=== PATIENT | female | born 1990 | race Asian ===

== ENCOUNTER 2019-01-01 21:30 | Emergency (ER) | payer MEDICAID ==
[~2019-01-01] VITALS: Ht 154.9 cm; Wt 47.3 kg
[~2019-01-01 21:30] MED LIST: ACET325T33 PO; RANI150T35 PO
[2019-01-01 21:49] VITALS: Ht 154.9 cm; Wt 47.3 kg
--- NOTE | 2019-01-01 23:13 | ERD ---
ER Documentation Chief Complaint Chief Complaint 11 WKS C/O ABD AND BACK PAIN X 9 DAYS DENIES VB ROS All systems reviewed and are negative except as per history of present illness. Medications Home Meds Active Scripts Acetaminophen* (Tylenol*) 325 Mg Tablet, 2 TAB PO Q6 PRN for PAIN AND OR ELEVATED TEMP, #20 TAB Prov:SCOOTER CONTRERAS PA-C 01/02/19 Ranitidine Hcl* (Zantac*) 150 Mg Tablet, 150 MG PO BID PRN for EPIGASTRIC PAIN, #30 TAB Prov:SCOOTER CONTRERAS PA-C 01/02/19 Allergies Allergies: Coded Allergies: No Known Allergy (Unverified , 12/25/18) PMhx/Soc Medical and Surgical Hx: pt denies Medical Hx, pt denies Surgical Hx Hx Alcohol Use: No Hx Substance Use: No Hx Tobacco Use: No Physical Exam Vitals Vital Signs Date Temp Pulse Resp B/P (MAP) Pulse Ox O2 O2 Flow FiO2 Time Delivery Rate 01/02/19 98.5 62 20 112/59 98 Room Air 01:58 (76) 01/01/19 98.6 66 18 113/56 100 21:49 (75) Physical Exam Const: No acute distress Head: Atraumatic Eyes: Normal Conjunctiva ENT: Normal External Ears, Nose and Mouth. Neck: Full range of motion. No meningismus. Resp: Clear to auscultation bilaterally Cardio: Regular rate and rhythm, no murmurs Abd: Soft, non tender, non distended. Normal bowel sounds Skin: No petechiae or rashes Back: No midline or flank tenderness Ext: No cyanosis, or edema Neur: Awake and alert Psych: Normal Mood and Affect Result Diagram: 01/01/19 2336 01/01/19 2336 Results 24 hrs Laboratory Tests Test 01/01/19 23:17 01/01/19 23:36 POC Beta HCG, Qualitative POSITIVE White Blood Count 9.9 10^3/ul Red Blood Count 4.04 10^6/ul Hemoglobin 11.1 g/dl Hematocrit 33.4 % Mean Corpuscular Volume 82.7 fl Mean Corpuscular Hemoglobin 27.5 pg Mean Corpuscular Hemoglobin Concent 33.2 g/dl Red Cell Distribution Width 15.7 % Platelet Count 233 10^3/UL Mean Platelet Volume 11.3 fl Immature Granulocytes % 0.200 % Neutrophils % 68.7 % Lymphocytes % 20.9 % Monocytes % 6.9 % Eosinophils % 2.9 % Basophils % 0.4 % Nucleated Red Blood Cells % 0.0 /100WBC Immature Granulocytes # 0.020 10^3/ul Neutrophils # 6.8 10^3/ul Lymphocytes # 2.1 10^3/ul Monocytes # 0.7 10^3/ul Eosinophils # 0.3 10^3/ul Basophils # 0.0 10^3/ul Nucleated Red Blood Cells # 0.0 10^3/ul Prothrombin Time 12.6 Sec Prothrombin Time Ratio 1.0 INR International Normalized Ratio 0.93 Activated Partial Thromboplast Time 27.1 Sec Urine Color STRAW Urine Clarity CLEAR Urine pH 8.0 Urine Specific [place] 1.005 Urine Ketones NEGATIVE mg/dL Urine Nitrite NEGATIVE mg/dL Urine Bilirubin NEGATIVE mg/dL Urine Urobilinogen NEGATIVE mg/dL Urine Leukocyte Esterase NEGATIVE Naheed/ul Urine Hemoglobin NEGATIVE mg/dL Urine Glucose NEGATIVE mg/dL Urine Total Protein NEGATIVE mg/dl Sodium Level 140 mmol/L Potassium Level 3.5 mmol/L Chloride Level 103 mmol/L Carbon Dioxide Level 26 mmol/L Anion Gap 11 Blood Urea Nitrogen 8 mg/dl Creatinine 0.64 mg/dl Est Glomerular Filtrat Rate mL/min > 60 mL/min Glucose Level 98 mg/dl Calcium Level 9.7 mg/dl Total Bilirubin 0.2 mg/dl Direct Bilirubin 0.00 mg/dl Indirect Bilirubin 0.2 mg/dl Aspartate Amino Transf (AST/SGOT) 52 IU/L Alanine Aminotransferase (ALT/SGPT) 61 IU/L Alkaline Phosphatase 57 IU/L Total Protein 8.1 g/dl Albumin 4.4 g/dl Globulin 3.70 g/dl Albumin/Globulin Ratio 1.18 Beta HCG, Quantitative 183019.0 mIU/ml Salicylates Level < 1.0 mg/dl Acetaminophen Level < 10.0 ug/ml Current Medications Medications Dose Sig/Alena Start Time Status Last (Trade) Ordered Route PRN Stop Time Admin Dose Reason Admin Sodium 1,000 ml @ Q1H STAT 01/01/19 DC 01/01/19 Chloride 1,000 mls/hr IV 23:26 23:39 01/02/19 00:25 Morphine 2 mg ONCE STAT 01/01/19 DC 01/01/19 Sulfate IV 23:26 23:39 (morphine) 01/01/19 23:31 Ondansetron 4 mg ONCE STAT 01/01/19 DC 01/01/19 HCl (Zofran IV 23:26 23:39 Inj) 01/01/19 23:31 ELISABETH BOO Jan 01, 2019 23:13
[2019-01-01] MEDS ORDERED: SOD CHLORIDE 0.9% 1,000 ML IV STA (23:26)
[2019-01-01] MEDS ORDERED: ONDANSETRON 4 MG INJ IV STA (23:26)
[2019-01-01] MEDS ORDERED: morphine 4 MG/ML VIAL IV STA (23:26)
[2019-01-02 01:58] VITALS: BP 112/59; PULSE 62; RESP 20
--- NOTE | 2019-01-08 01:44 | ERD ---
ER Documentation Chief Complaint Chief Complaint 11 WKS C/O ABD AND BACK PAIN X 9 DAYS DENIES VB HPI This is a 28-year-old female who is 11 weeks , G1, P0, last menstrual c ycle of 10/14/2018 presenting to the emergency department at approximately 11 weeks with complaints of back and suprapubic pain. She denies any vaginal bleeding. She is also had nausea. Her pain is sharp. She took no medication for relief of symptoms today. No other symptoms reported currently. ROS All systems reviewed and are negative except as per history of present illness. Medications Home Meds Active Scripts Acetaminophen* (Tylenol*) 325 Mg Tablet, 2 TAB PO Q6 PRN for PAIN AND OR ELEVATED TEMP, #20 TAB Prov:SCOOTER CONTRERAS PA-C 01/02/19 Ranitidine Hcl* (Zantac*) 150 Mg Tablet, 150 MG PO BID PRN for EPIGASTRIC PAIN, #30 TAB Prov:SCOOTER CONTRERAS PA-C 01/02/19 Allergies Allergies: Coded Allergies: No Known Allergy (Unverified , 12/25/18) PMhx/Soc Medical and Surgical Hx: pt denies Medical Hx, pt denies Surgical Hx Hx Alcohol Use: No Hx Substance Use: No Hx Tobacco Use: No FmHx Family History: No diabetes Physical Exam Physical Exam Const: No acute distress Head: Atraumatic Eyes: Normal Conjunctiva ENT: Normal External Ears, Nose and Mouth. Neck: Full range of motion. No meningismus. Resp: Clear to auscultation bilaterally Cardio: Regular rate and rhythm, no murmurs Abd: Soft, non tender, non distended. Normal bowel sounds. Tenderness palpation of the bilateral suprapubic region. No rebound tenderness or guarding . No McBurney's point tenderness. Skin: No petechiae or rashes Back: No midline or flank tenderness Ext: No cyanosis, or edema Neur: Awake and alert Psych: Normal Mood and Affect Results 24 hrs Laboratory Tests Test 01/01/19 23:17 01/01/19 23:36 POC Beta HCG, Qualitative POSITIVE White Blood Count 9.9 10^3/ul Red Blood Count 4.04 10^6/ul Hemoglobin 11.1 g/dl Hematocrit 33.4 % Mean Corpuscular Volume 82.7 fl Mean Corpuscular Hemoglobin 27.5 pg Mean Corpuscular Hemoglobin Concent 33.2 g/dl Red Cell Distribution Width 15.7 % Platelet Count 233 10^3/UL Mean Platelet Volume 11.3 fl Immature Granulocytes % 0.200 % Neutrophils % 68.7 % Lymphocytes % 20.9 % Monocytes % 6.9 % Eosinophils % 2.9 % Basophils % 0.4 % Nucleated Red Blood Cells % 0.0 /100WBC Immature Granulocytes # 0.020 10^3/ul Neutrophils # 6.8 10^3/ul Lymphocytes # 2.1 10^3/ul Monocytes # 0.7 10^3/ul Eosinophils # 0.3 10^3/ul Basophils # 0.0 10^3/ul Nucleated Red Blood Cells # 0.0 10^3/ul Prothrombin Time 12.6 Sec Prothrombin Time Ratio 1.0 INR International Normalized Ratio 0.93 Activated Partial Thromboplast Time 27.1 Sec Urine Color STRAW Urine Clarity CLEAR Urine pH 8.0 Urine Specific [place] 1.005 Urine Ketones NEGATIVE mg/dL Urine Nitrite NEGATIVE mg/dL Urine Bilirubin NEGATIVE mg/dL Urine Urobilinogen NEGATIVE mg/dL Urine Leukocyte Esterase NEGATIVE Naheed/ul Urine Hemoglobin NEGATIVE mg/dL Urine Glucose NEGATIVE mg/dL Urine Total Protein NEGATIVE mg/dl Sodium Level 140 mmol/L Potassium Level 3.5 mmol/L Chloride Level 103 mmol/L Carbon Dioxide Level 26 mmol/L Anion Gap 11 Blood Urea Nitrogen 8 mg/dl Creatinine 0.64 mg/dl Est Glomerular Filtrat Rate mL/min > 60 mL/min Glucose Level 98 mg/dl Calcium Level 9.7 mg/dl Total Bilirubin 0.2 mg/dl Direct Bilirubin 0.00 mg/dl Indirect Bilirubin 0.2 mg/dl Aspartate Amino Transf (AST/SGOT) 52 IU/L Alanine Aminotransferase (ALT/SGPT) 61 IU/L Alkaline Phosphatase 57 IU/L Total Protein 8.1 g/dl Albumin 4.4 g/dl Globulin 3.70 g/dl Albumin/Globulin Ratio 1.18 Beta HCG, Quantitative 904866.0 mIU/ml Salicylates Level < 1.0 mg/dl Acetaminophen Level < 10.0 ug/ml Current Medications Medications Dose Sig/Alena Start Time Status Last (Trade) Ordered Route PRN Stop Time Admin Dose Reason Admin Sodium 1,000 ml @ Q1H STAT 01/01/19 DC 01/01/19 Chloride 1,000 mls/hr IV 23:26 23:39 01/02/19 00:25 Morphine 2 mg ONCE STAT 01/01/19 DC 01/01/19 Sulfate IV 23:26 23:39 (morphine) 01/01/19 23:31 Ondansetron 4 mg ONCE STAT 01/01/19 DC 01/01/19 HCl (Zofran IV 23:26 23:39 Inj) 01/01/19 23:31 [place] [address] Radiology Main Line: [phone] DIAGNOSTIC IMAGING REPORT Patient: CRISTHIAN OJEDA : 1990 Age: 28 Sex: F MR #: [id number] DOS: 01/02/19 0000 Ordering MD: SCOOTER CONTRERAS PA-C Location: [facility] Room/Bed: PROCEDURE: Renal US. CLINICAL INDICATION: Abdominal pain. TECHNIQUE: Multiple sonographic images of the kidneys were obtained. The images were reviewed on a PACS workstation. COMPARISON: No prior studies are available for comparison. FINDINGS: The right kidney measures 11.1 cm. There is normal renal cortical echogenicity without evidence of hydronephrosis, calculus or mass. There is normal Doppler flow. The left kidney measures 11.5 cm. There is normal renal cortical echogenicity without evidence of hydronephrosis, calculus or mass. There is normal Doppler flow. The bladder is adequately distended without evidence of asymmetric wall thickening or debris. IMPRESSION: 1. Normal sonographic findings of the kidneys and urinary bladder. RPTAT: HGAS .Chinedu Gibson MD, MD Date Time Electronically viewed and signed by .Chinedu Gibson MD, MD on 01/02/2019 00:51 .S/ CC: SCOOTER CONTRERAS PA-C [id number] [place] [id number] Radiology Main Line: [phone] DIAGNOSTIC IMAGING REPORT Patient: CRISTHIAN OJEDA : 1990 Age: 28 Sex: F MR #: [id number] DOS: 01/01/19 2326 Ordering MD: SCOOTER CONTRERAS PA-C Location: [facility] Room/Bed: PROCEDURE: OB Ultrasound. CLINICAL INDICATION: Positive test. Pelvic pain. TECHNIQUE: Ultrasound of the pelvis was performed with transabdominal sonography in the axial and sagittal planes. COMPARISON: No prior study is available for comparison. FINDINGS: There is a single intrauterine gestational sac. Yolk sac is present. pole is visualized. There is heart motion. heart rate is 168 beats per minute. [place]-rump length is 4.50 cm. Mean sac diameter is 5.76 cm. Menstrual age by ultrasound dates is 12 weeks 0 days. This indicates an expected date of delivery of 07/16/2019. The ovaries are not visualized. There is no other pelvic mass or free fluid. IMPRESSION: 1. Single live intrauterine gestation of 12 weeks 0 days menstrual age by ultrasound dates. 2. Expected date of delivery is 07/16/2019. RPTAT: QQ .Chris Schulte MD, MD Date Time Electronically viewed and signed by .Chris Schulte MD, on 01/02/2019 00:54 .R/ CC: SCOOTER CONTRERAS PA-C [id number] Procedures/MDM 28-year-old female presenting to the emergency department complaining of back pain and epigastric pain. She is reportedly 12 weeks . She was improved in the department after administration of Tylenol. The patient is otherwise stable for discharge and further outpatient management. No evidence to suggest ectopic , tubo-ovarian abscess, ovarian torsion, or other emergent pathology. Patient's laboratory studies were within normal limits. No evidence of urinary tract infection. Patient advised to have 24 to 48-hour follow-up with her [facility] physician and return here immediately for any new or concerning symptoms. Shared my medical decision making the patient she understands and agrees with the plan. Departure Diagnosis: Primary Impression: Back pain Additional Impression: Epigastric pain Condition: Fair Patient Instructions: Back Exercises, Lumbar, Back Pain (Acute Or Chronic), Gerd (Adult) Additional Instructions: Call your primary care doctor TOMORROW for an appointment during the next 1-2 days.See the doctor sooner or return here if your condition worsens before your appointment time. SCOOTER CONTRERAS PA-C Jan 08, 2019 01:44
== END 2019-01-02 01:59 | disposition home or self-care (01) ==
LOC: FTE 21:30
DX: O26.891 Other specified pregnancy related conditions, first trimester (principal); R10.13 Epigastric pain; M54.9 Dorsalgia, unspecified; R10.2 Pelvic and perineal pain; Z3A.11 11 weeks gestation of pregnancy
CPT/HCPCS: 36415; 76775; 76801; 80053; 80307; 81003; 81025; 84702; 85025; 85610; 85730; 87086; 96361; 96374; 96375; J2270; J2405; J7030; Z7502